=== PATIENT | female | born 1975 | race Caucasian/White ===

== ENCOUNTER 2017-03-13 14:59 | Emergency (ER) | payer OTHER ==
[2017-03-13 15:24] LABS: BASOPHIL 0.4 % (0-2); HCT 42.3 % (37.0-47.0); HGB 14.4 g/dl (12.5-16.0); LYMPHOCYTE 17.7 % (15-48); MCH 29.4 pg (25.0-31.0); MCV 86.5 fL (78.0-100.0); MONOCYTE 11.8 % (0-12); MPV 10.1 fL (6.0-9.5); NEUTROPHIL 69.1 % (41-80); PLT 262 K/uL (150-400); RBC 4.89 M/uL (4.20-5.40); RDW 13.6 % (11.5-14.0); WBC 12.5 K/uL (4.0-10.5)
[2017-03-13 15:42] LABS: INR 1.08 (0.9-1.2); PROTHROMBIN TIME 13.6 SECONDS (11.7-14.0); PTT 24.4 SECONDS (23.2-31.4)
[2017-03-13 15:43] LABS: D-DIMER 0.58 ug/mLFEU (0.00-0.41)
[2017-03-13 15:47] LABS: ALBUMIN 4.4 g/dL (3.5-5.0); BILIRUBIN - TOTAL 0.3 mg/dL (0.1-1.0); CREATININE 0.7 mg/dL (0.5-1.0); GLOBULIN (CALCULATION) 2.7 g/dL (2.2-4.2); MAGNESIUM 2.01 mg/dL (1.40-2.10); POTASSIUM 3.5 mmol/L (3.5-5.1); TOTAL PROTEIN 7.1 g/dL (6.4-8.3)
[2017-03-13 15:54] LABS: CKMB 1.13 ng/mL (0.97-4.94); MYOGLOBIN 21 ng/mL (26-65); PRO-BNP 57 pg/mL (0-125); TROPONIN T < 0.010 ng/mL
== END 2017-03-13 16:00 | disposition other institution (70) ==
LOC: FER 14:59
PROVIDERS: Emergency Medicine
DX: I21.09 ST elevation (STEMI) myocardial infarction involving other coronary artery of anterior wall (principal); Z95.2 Presence of prosthetic heart valve; Z86.79 Personal history of other diseases of the circulatory system; Z82.49 Family history of ischemic heart disease and other diseases of the circulatory system; Z79.01 Long term (current) use of anticoagulants
CPT/HCPCS: 36415; 71010; 80053; 82550; 82553; 83735; 83874; 83880; 84484; 85025; 85379; 85610; 85730; 93005; J1644; J2270; J2405

== ENCOUNTER 2021-11-05 21:59 | Emergency (ER) | payer OTHER ==
[2021-11-06] MEDS ORDERED: KEFLEX250 MG PO (00:13)
== END 2021-11-06 00:23 | disposition home or self-care (01) ==
LOC: FER 21:59
DX: S61.412A Laceration without foreign body of left hand, initial encounter (principal); I25.10 Atherosclerotic heart disease of native coronary artery without angina pectoris; Z23 Encounter for immunization; Z79.01 Long term (current) use of anticoagulants; W45.8XXA Other foreign body or object entering through skin, initial encounter; Y92.009 Unspecified place in unspecified non-institutional (private) residence as the place of occurrence of the external cause
CPT/HCPCS: 73130; 90471; 90715